=== PATIENT | male | born 1980 | race Caucasian/White ===

== ENCOUNTER 2019-07-22 11:57 | Emergency (ER) | payer OTHER ==
[~2019-07-22] VITALS: Ht 188 cm; Wt 117.9 kg
[2019-07-22] MEDS ORDERED: VIAGRA25 MG PO (12:02)
[2019-07-22 12:33] LABS: URINE BILIRUBIN NEGATIVE (Negative); URINE BLOOD NEGATIVE (Negative); URINE CLARITY CLEAR; URINE COLOR YELLOW; URINE GLUCOSE-RANDOM* NEGATIVE (Negative); URINE KETONES NEGATIVE (Negative); URINE LEUKOCYTES-REFLEX NEGATIVE (Negative); URINE NITRITE-REFLEX NEGATIVE (Negative); URINE PROTEIN (DIPSTICK) NEGATIVE (Negative); URINE SPECIFIC GRAVITY >= 1.030 (1.005-1.035); URINE UROBILINOGEN 0.2 E.U./dl (0.2-1.0)
[2019-07-22 12:35] LABS: ABSOLUTE NEUTROPHILS 4.4 thou/uL (1.4-8.2); BASOPHILS 0.3 % (0.0-2.0); HEMATOCRIT 41.8 % (42.0-52.0); HEMOGLOBIN 14.3 gm/dL (14.0-18.0); LYMPHOCYTES 24.6 % (24.0-44.0); MCH 28.4 pg (26.0-34.0); MCHC 34.1 g/dL (28.0-37.0); MCV 83.3 fL (80.0-100.0); MONOCYTES 8.5 % (1.0-8.0); PLATELET COUNT 268 thou/uL (150-400); POLYS 59.6 % (36.0-66.0); RBC 5.02 mil/uL (4.50-6.00); RDW 12.8 % (10.5-14.5); WBC 7.4 thou/uL (4.0-11.0)
[2019-07-22 12:43] LABS: CREATININE 1.1 mg/dL (0.7-1.3); POTASSIUM 3.8 mmol/L (3.5-5.1)
[2019-07-22 12:49] LABS: ALBUMIN 3.9 g/dL (3.4-5.0); TOTAL BILIRUBIN 0.2 mg/dL (<0.1-1.0); TOTAL PROTEIN 7.4 g/dL (6.4-8.2)
[2019-07-22] MEDS ORDERED: CYCLOBENZAPRINE5 MG PO (13:46)
[2019-07-22] MEDS ORDERED: NORCO 5-325 TA1 EAC1 PO (13:46)
[2019-07-22] MEDS ORDERED: MEDROLDOSEPACK PO (13:46)
[2019-07-22 14:02] VITALS: BP 120/72
== END 2019-07-22 14:04 | disposition home or self-care (01) ==
LOC: ER 11:57
PROVIDERS: Physician Assistant
DX: M54.5 Low back pain (principal); R10.9 Unspecified abdominal pain; J45.909 Unspecified asthma, uncomplicated; Z90.49 Acquired absence of other specified parts of digestive tract